=== PATIENT | male | born 1995 | race Caucasian/White ===

== ENCOUNTER 2018-02-23 10:25 | Day surgery (SDC) | payer MEDICAID ==
[2018-02-22 11:59] LABS: BASOPHILS % (AUTO) 0.4 % (0-1); EOSINOPHILS # (AUTO) 0.2 X10'3 (0-0.9); EOSINOPHILS % (AUTO) 2.8 % (0-6); LYMPHOCYTES # (AUTO) 1.4 X10'3 (1.1-4.8); LYMPHOCYTES % (AUTO) 25.7 % (21-51); MEAN CORPUSCULAR HEMOGLOBIN 31.8 PG (27.0-31.0); MEAN CORPUSCULAR HGB CONC 33.7 % (33.0-36.5); MEAN CORPUSCULAR VOLUME 94.4 FL (78-98); MEAN PLATELET VOLUME 9.9 FL (7.4-10.4); MONOCYTES # (AUTO) 0.6 X10'3 (0-0.9); MONOCYTES % (AUTO) 10.5 % (2-12); NEUTROPHILS # (AUTO) 3.4 X10'3 (1.8-7.7); NEUTROPHILS % (AUTO) 60.6 % (42-75); PRE OP HEMATOCRIT 49.3 % (42.0-52.0); PRE OP HEMOGLOBIN 16.6 g/dL (14.0-17.9); PRE OP PLATELET COUNT 228 X10'3 (140-440); RED BLOOD COUNT 5.22 X10'6 (4.70-6.10)
[2018-02-22 12:16] LABS: ALBUMIN 4.1 G/DL (3.4-5.0); ALBUMIN/GLOBULIN RATIO 1.4 (1.1-1.5); ALKALINE PHOSPHATASE 59 IU/L (20-180); BLOOD UREA NITROGEN 9 MG/DL (7-18); BUN/CREATININE RATIO 12.7 (5.4-32.0); CALCIUM 9.6 MG/DL (8.5-10.1); CHLORIDE 104 MMOL/L (99-107); CREATININE 0.71 MG/DL (0.60-1.10); PRE OP ALT 49 U/L (30-65); PRE OP ANION GAP 7 (8-16); PRE OP AST 20 U/L (10-37); PRE OP BILIRUB, TOTAL 0.8 MG/DL (0.0-1.0); PRE OP GLUCOSE 85 MG/DL (70-104); PRE OP POTASSIUM 4.2 MMOL/L (3.4-5.1); PRE OP SODIUM 142 MMOL/L (135-145); TOTAL CARBON DIOXIDE 30.8 MMOL/L (24-32); TOTAL PROTEIN 7.1 G/DL (6.4-8.2); eGFR > 90 ML/MIN
[2018-02-22 12:23] LABS: CLARITY,URINE CLEAR (Clear); COLOR,URINE YELLOW (Yellow); GLUCOSE, URINE NEGATIVE (Neg); KETONES,URINE NEGATIVE (Neg); LEUKOCYTE ESTERASE ,URINE NEGATIVE (Neg); NITRITES, URINE NEGATIVE (Neg); OCCULT BLOOD,URINE NEGATIVE (Neg); PROTEIN,URINE NEGATIVE (Neg); UA COLLECTION TYPE CLN CATCH MIDSTREAM; UROBILINOGEN,URINE 0.2 E.U/dL (0.2-1.0)
[2018-02-23] VITALS (7 sets, daily range): BP systolic 100–125; BP diastolic 48–78
[~2018-02-23] VITALS: Ht 175.3 cm; Wt 79.4 kg
[~2018-02-23 10:25] MED LIST: NO HOME MEDS; cefazolin/dext.iso 2gm/100 ML IV ONE; famotidine 20mg tablet PO ONE; ringers solution, lacted 1,000 ML IV SCH
[2018-02-23] MEDS ORDERED: ringers solution, lacted 1,000 ML IV SCH (11:41)
[2018-02-23] MEDS ORDERED: hydrALAZINE 20mg/ml inj. IV PRN (11:45)
[2018-02-23] MEDS ORDERED: ondansetron/PF 4mg/2ml inj IV PRN (11:45)
[2018-02-23] MEDS ORDERED: fentaNYL/PF 50MCG/1 ML 2ML syringe IV PRN ×2 (11:45)
[2018-02-23] MEDS ORDERED: morphine 4 MG/ML inj SYRINge IV PRN ×2 (11:45)
[2018-02-23] MEDS ORDERED: labetalol 20mg/4ml (5mg/ml) syringe IV PRN (11:45)
[2018-02-23] MEDS ORDERED: methylene blue (5mg/ml) 50mg/10ml ampul IV ONE (12:13)
[2018-02-23] MEDS ORDERED: povidone-iodine 10% topical ointment 28.4gm TP ONE (12:13)
[2018-02-23] MEDS ORDERED: ROPIVAcaine 0.5% (5mg/ml) 30ml vial ONE ×2 (12:13→12:47)
[2018-02-23] MEDS ORDERED: rocuronium 10mg/ml inj IV ONE (12:22)
[2018-02-23] MEDS ORDERED: fentaNYL/PF 50MCG/1 ML 2ML syringe ONE (12:22)
[2018-02-23] MEDS ORDERED: propofol inj 20 ML IV ONE (12:22)
[2018-02-23] MEDS ORDERED: neostigmine methylsulfate 1 MG/ML 10ml vial ONE (12:23)
[2018-02-23] MEDS ORDERED: glycopyrrolate 0.2mg/ml inj ONE (12:23)
[2018-02-23] MEDS ORDERED: dexamethasone sod phosphate 10mg/ml inj ONE (12:25)
[2018-02-23] MEDS ORDERED: LIDOcaine 1%/PF 5ML 10 MG/ML VIAL ONE (12:25)
[2018-02-23] MEDS ORDERED: sevoflurane 250ml liquid IH ONE (12:25)
[2018-02-23] MEDS ORDERED: ondansetron/PF 4mg/2ml inj ONE (12:39)
[2018-02-23] MEDS ORDERED: acetaminophen w/codeine (30MG) #3 tablet PO ONE (13:50)
== END 2018-02-23 14:30 | disposition home or self-care (01) ==
LOC: PAS 10:25
PROVIDERS: ATTEND Surgery
DX: L05.01 Pilonidal cyst with abscess (principal); Z90.89 Acquired absence of other organs; Z88.1 Allergy status to other antibiotic agents; Z98.890 Other specified postprocedural states
CPT/HCPCS: 11771; 36415; 80053; 81003; 85025; A6257; A6449; J0690; J1100; J2001; J2405; J2704; J2710; J3010; A7000; J2795; J3490; J7120